=== PATIENT | female | born 1950 | race Caucasian/White ===

== ENCOUNTER 2017-04-20 22:26 | Emergency (ER) | payer MEDICARE, MEDICAID ==
[~2017-04-20] VITALS: Ht 182.9 cm; Wt 78.9 kg
[2017-04-20 22:26] VITALS: BP 180/88
--- NOTE | 2017-04-20 22:26 | NUR ---
PT BIBA BLS. TAKEN TO BED 1 Addendum: 04/20/17 at 2230 by MARY BETH PT TAKEN TO BED 2
--- NOTE | 2017-04-20 22:30 | NUR ---
66 YEAR OLD FEMALE WITH HISTORY OF IBS C/O OF N/V/D RESIDENT VOMITED X2 UPON ARRIVAL. 67/F PATIENT PRESENTS TO ED WITH PT STATES SHE HAS BEEN C/C OF N/V/D; RESIDENT HAS VOMITED X2 UPON ARRIVAL AND HAS HAD VOMITING AND DIAHREA SINCE YESTERDAY. SHE HAS HISTORY OF IBS SHE IS C/O OF DIZZINESSS SKIN IS PINK/WARM/DRY; AAOX4 WITH EVEN AND STEADY GAIT; LUNGS CLEAR BL; HR EVEN AND REGULAR; PT DENIES ANY FEVER, CP, SOB, OR COUGH AT THIS TIME; PATIENT STATES PAIN OF 6/10 AT THIS TIME; VSS; PATIENT POSITIONED FOR COMFORT; HOB ELEVATED; BEDRAILS UP X2; BED DOWN. ER MD MADE AWARE OF PT STATUS.
[2017-04-20] MEDS ORDERED: NACL 0.9% 1,000 ML IV ONE (22:55)
[2017-04-20] MEDS ORDERED: ONDANSETRON 4 MG/2 ML VIAL IVP ONE (22:55)
[2017-04-20] MEDS ORDERED: ONDANSETRON 4 MG/2 ML VIAL ONE (23:15)
--- NOTE | 2017-04-21 00:47 | NUR ---
Dr. Cm evaluating patient.
[2017-04-21] MEDS ORDERED: MECLIZINE 25 MG TAB PO ONE (00:55)
[2017-04-21 03:45] VITALS: BP 153/81
--- NOTE | 2017-04-21 05:38 | NUR ---
Patient discharged with v/s stable. Written and verbal after care instructions given and explained. Patient alert, oriented and verbalized understanding of instructions. Wheel Chair Assisted with to car. All questions addressed prior to discharge. ID band removed. Patient advised to follow up with PMD. Rx of CIPRO 500MG, MECLIZINE ,ZOFRAN given. Patient educated on indication of medication including possible reaction and side effects. Opportunity to ask questions provided and answered.
== END 2017-04-21 03:45 | disposition home or self-care (01) ==
LOC: MED 22:26
DX: N39.0 Urinary tract infection, site not specified (principal); R42 Dizziness and giddiness; I10 Essential (primary) hypertension
CPT/HCPCS: 81002; 96361; 96374; 99284; J2405; J7030; J8597